=== PATIENT | male | born 1990 | race Caucasian/White ===

== ENCOUNTER 2018-01-26 09:48 | Emergency (ER) | payer OTHER ==
[~2018-01-26] VITALS: Ht 170.2 cm; Wt 72.7 kg
[2018-01-26 10:09] VITALS: BP 119/74
[2018-01-26] MEDS ORDERED: ATRNS (11:03)
== END 2018-01-26 11:09 | disposition home or self-care (01) ==
LOC: ER 09:51
DX: R05 Cough (principal); R09.81 Nasal congestion; J35.8 Other chronic diseases of tonsils and adenoids
CPT/HCPCS: 99283